=== PATIENT | male | born 1955 | race Caucasian/White ===

== ENCOUNTER 2019-11-16 13:36 | Inpatient (IN) | payer OTHER ==
--- NOTE | 2019-11-16 13:27 | BHS.RME ---
Substance Use & Tx History - Substance Use History Alcohol Substance amount: 1/2 pint vodka Frequency of use: Daily Substance route: Oral Date of Last Use: 11/13/19 (started age 10) Heroin Substance amount: 1 bundle Frequency of use: Daily Substance route: Inhalation (ex: sniffing or snorting) Date of Last Use: 11/16/19 (started age 12) Nicotine Substance amount: 1 pack Frequency of use: Daily Substance route: Smoking Date of Last Use: 11/16/19 Physical/Psych/Mental Status - Behavior General Behavior: Increased activity (restlessness, agitation) Eye Contact: Normal - Cooperativeness Cooperativeness: Cooperative - Thinking Thought Processes: Tight, Logical, Goal Directed - Physical Health Problems Is patient presently having any pain?: No Does patient presently have any injuries (include location): No Does patient currently have a fever: No Is patient : No COWS - Scale Resting Pulse: 0= [place] 80 or Below Sweatin= Chills/Flushing Restless Observation: 1= Difficult to Sit Still Pupil Size: 1= Pupils >than Normal Bone or Joint Aches: 1= Mild Discomfort Runny Nose/ Eye Tearin= Nasal Congestion GI Upset > 30mins: 1= Stomach Cramp Tremor Observation: 1= Tremor [place], Not Seen Yawning Observation: 1= 1-2x During Session Anxiety or Irritability: 1=Feels Anxious/Irritable Goose Flesh Skin: 3=Piloerection COWS Score: 12
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
[2019-11-16] MEDS ORDERED: METHOCARBAMOL 500 MG TABLET PO PRN (14:52)
[2019-11-16] MEDS ORDERED: IBUPROFEN 400 MG TABLET (FP) PO PRN (14:52)
[2019-11-16] MEDS ORDERED: BISMUTH SUBSALICYLATE 262 MG/15 ML BTL PO PRN (14:52)
[2019-11-16] MEDS ORDERED: cloNIDine HCL 0.1 MG TABLET PO PRN (14:52)
[2019-11-16] MEDS ORDERED: NICOTINE POLACRILEX 2 MG GUM BUC PRN (14:52)
[2019-11-16] MEDS ORDERED: MAGNESIUM CITRATE 300 ML BOTTLE PO PRN (14:52)
[2019-11-16] MEDS ORDERED: ACETAMINOPHEN 325 MG TABLET (FP) PO PRN ×2 (14:52)
[2019-11-16] MEDS ORDERED: ONDANSETRON *ODT* 4 MG TABLET SL PRN (14:52)
[2019-11-16] MEDS ORDERED: METHADONE HCL 10 MG TABLET (FOR DETOX USE ONLY) PO ONE (14:52)
[2019-11-16] MEDS ORDERED: MAG HYDROX/AL HYDROX/SIMETH 30 ML UNIT-DOSE CUP PO PRN (14:52)
[2019-11-16] MEDS ORDERED: MAGNESIUM HYDROX 2400MG/30ML ORAL SUSPENSION 30 ML CUP PO PRN (14:52)
[2019-11-16] MEDS ORDERED: MENTHOL/PHENOL 1 EACH UD MM PRN (14:52)
[2019-11-16 15:23] VITALS: BMI 31.3
[2019-11-16] MEDS: NICOTINE 21 MG/24 HOURS TOPICAL PATCH TD SCH (16:10)
--- NOTE | 2019-11-16 16:35 | PN ---
Teaching Attending Note Name of Resident: Corin Molina ATTENDING PHYSICIAN STATEMENT I saw and evaluated the patient. I reviewed the resident's note and discussed the case with the resident. I agree with the resident's findings and plan as documented. SUBJECTIVE: OBJECTIVE: ASSESSMENT AND PLAN: 1. Opiate use disorder, withdrawal 2. Alcohol use disorder, has not had a drink in 3 days, low CIWA Plan 1. Methadone detox 2. Monitor for withdrawal
--- NOTE | 2019-11-16 17:11 | EKG ---
Test Reason : Blood Pressure : / mmHG Vent. Rate : 053 BPM Atrial Rate : 053 BPM P-R Int : 148 ms QRS Dur : 078 ms QT Int : 424 ms P-R-T Axes : 055 036 067 degrees QTc Int : 397 ms SINUS BRADYCARDIA OTHERWISE NORMAL ECG NO PREVIOUS ECGS AVAILABLE Confirmed by ANGEL POWELL MD ([id number]) on 11/16/2019 5:10:43 PM Referred By: Confirmed By:ANGEL POWELL MD
[2019-11-16] MEDS ORDERED: hydrOXYzine PAMOATE 25 MG CAPSULE (FP) PO SCH (18:00)
[2019-11-16] MEDS: CARVEDILOL 25 MG TABLET (FP) PO SCH (22:09)
[2019-11-16] MEDS: THIAMINE HCL 100 MG TABLET (FP) PO SCH (22:09)
[2019-11-16] MEDS: MELATONIN 5 MG TABLETS PO SCH (22:10)
[2019-11-17] MEDS: hydrOXYzine PAMOATE 25 MG CAPSULE (FP) PO PRN ×3 (03:53→17:39)
[2019-11-17] MEDS ORDERED: METHADONE HCL 5 MG TABLET (FOR DETOX USE ONLY) ONE (09:07)
[2019-11-17] MEDS ORDERED: METHADONE HCL 10 MG TABLET (FOR DETOX USE ONLY) ONE (09:08)
[2019-11-17] MEDS: CARVEDILOL 25 MG TABLET (FP) PO SCH ×2 (09:10→23:28)
[2019-11-17] MEDS: ASPIRIN 81 MG CHEWABLE TABLETS PO SCH (09:10)
[2019-11-17] MEDS: LOSARTAN POTASSIUM 50 MG TABLET PO SCH (09:10)
[2019-11-17] MEDS: NICOTINE 21 MG/24 HOURS TOPICAL PATCH TD SCH (09:10)
[2019-11-17] MEDS: PRENATAL VITAMINS W/ FOLIC ACID TABLET (FP) PO SCH (09:11)
--- NOTE | 2019-11-17 09:21 | CONSULT ---
[facility] Psychiatric Consult - Data Date of interview: 11/17/19 Admission source: [facility] Identifying data: Mr Birmingham is a 64 years old Black male, father of 2 living children, unemployed receiving SSI, living with family seeking detox treatment for alcohol and opioid Substance Abuse History: Reports history of alcohol and heroin use. Refer to addiction counselor's summary for further information Medical History: Significant for COPD, hypertension, dyslipidemia, coronary artery disease with history of stent placement in 2018 Psychiatric History: This is patient's first admission to this facility. He denies history of previous psychiatric treatment or suicidal attempt. However, reports that for the past year, he has been presribed Seroquel 100 mg/hs for insomnia by his primary care physician. At present, reports feeling depressed and sleeping poorly Physical/Sexual Abuse/Trauma History: Denies history of abuse as a child or DV relationship as an adult Mental Status Exam - Mental Status Exam Alert and Oriented to: Time, Place, Person Cognitive Function: Fair Patient Appearance: Well Groomed Mood: Depressed Affect: Appropriate Patient Behavior: Cooperative Voice Loudness: Normal Thought Process: Intact, Goal Oriented Thought Disorder: Not Present Hallucinations: Denies Suicidal Ideation: Denies Homicidal Ideation: Denies Insight/Judgement: Poor Sleep: Poorly Appetite: Poor Muscle strength/Tone: Normal Gait/Station: Normal Psychiatric Findings - Problem List ([place] 1, 2,3) (1) Substance induced mood disorder Current Visit: Yes Status: Acute (2) Substance-induced sleep disorder Current Visit: Yes Status: Acute (3) Uncomplicated opioid dependence Current Visit: Yes Status: Acute (4) Alcohol dependence Current Visit: Yes Status: Acute (5) Nicotine dependence Current Visit: Yes Status: Chronic (6) HTN (hypertension) Current Visit: Yes Status: Chronic (7) HLD (hyperlipidemia) Current Visit: Yes Status: Chronic (8) CAD (coronary artery disease) Current Visit: Yes Status: Chronic (9) Stented coronary artery Current Visit: Yes Status: Chronic - Initial Treatment Plan Initial Treatment Plan: 1) Continue Seroquel 100 mg po HS. Benefits vs Risks(Diabetes mellitus, Tardive dyskinesia etc) discussed with patient and he insists on being ordered medication. 2) Continue inpatient detoxification
--- NOTE | 2019-11-17 09:49 | PN ---
S COWS - Scale Resting Pulse: 0= [place] 80 or Below Sweatin= No chills or Flushing Restless Observation: 0= Sits Still Pupil Size: 1= Pupils >than Normal Bone or Joint Aches: 2= Severe Diffuse Aches Runny Nose/ Eye Tearin= Runny Nose/Eyes GI Upset > 30mins: 2= Nausea/Diarrhea Tremor Observation of Outstretched Hands: 2= Slight Tremor Visible Yawning Observation: 1= 1-2x During Session Anxiety or Irritability: 2=Irritable/Anxious Goose Flesh Skin: 0=Smooth Skin COWS Score: 12 S Progress Note (SOAP) Subjective: alert,irritable,anxious,interrupted sleep,pain in the body,back,nausea,diarrhea Objective: 11/18/19 07:23 Vital Signs Temperature 97.3 F L 11/18/19 05:55 Pulse Rate 71 11/18/19 05:55 Respiratory Rate 18 11/18/19 05:55 Blood Pressure 117/73 11/18/19 05:55 O2 Sat by Pulse Oximetry (%) 98 11/18/19 05:55 11/18/19 07:24 Laboratory Last Values WBC 5.2 K/mm3 (4.0-10.0) 11/16/19 07:00 RBC 5.27 M/mm3 (4.00-5.60) 11/16/19 07:00 Hgb 14.6 GM/dL (11.7-16.9) 11/16/19 07:00 Hct 44.0 % (35.4-49) 11/16/19 07:00 MCV 83.6 fl (80-96) 11/16/19 07:00 MCH 27.8 pg (25.7-33.7) 11/16/19 07:00 MCHC 33.2 g/dl (32.0-35.9) 11/16/19 07:00 RDW 13.0 % (11.9-15.9) 11/16/19 07:00 Plt Count 181 K/MM3 (134-434) 11/16/19 07:00 MPV 8.2 fl (7.5-11.1) 11/16/19 07:00 Sodium 141 mmol/L (136-145) 11/16/19 07:00 Potassium 4.3 mmol/L (3.5-5.1) 11/16/19 07:00 Chloride 108 mmol/L (98-107) H 11/16/19 07:00 Carbon Dioxide 27 mmol/L (21-32) 11/16/19 07:00 Anion Gap 6 MMOL/L (8-16) L 11/16/19 07:00 BUN 14.7 mg/dL (7-18) 11/16/19 07:00 Creatinine 0.8 mg/dL (0.55-1.3) 11/16/19 07:00 Est GFR (CKD-EPI)AfAm 109.42 11/16/19 07:00 Est GFR (CKD-EPI)NonAf 94.41 11/16/19 07:00 Random Glucose 104 mg/dL (74-106) 11/16/19 07:00 Calcium 9.1 mg/dL (8.5-10.1) 11/16/19 07:00 Total Bilirubin 0.8 mg/dL (0.2-1) 11/16/19 07:00 AST 15 U/L (15-37) 11/16/19 07:00 ALT 27 U/L (13-61) 11/16/19 07:00 Alkaline Phosphatase 89 U/L (45-117) 11/16/19 07:00 Total Protein 7.1 g/dl (6.4-8.2) 11/16/19 07:00 Albumin 3.5 g/dl (3.4-5.0) 11/16/19 07:00 Syphilis Serology Non-reactive (NONREACTIVE) 11/16/19 07:00 Assessment: 11/18/19 07:24 withdrawal symptom Plan: continue detox methadone regimen,valium 10 mgs po q 4hrs prn for 72 hrs for severe withdrawal,encourage oral fluid
[2019-11-17] MEDS ORDERED: METHADONE (DETOX) 20 MG, METHADONE (DETOX) 5 MG PO ONE (10:00)
[2019-11-17 10:18] LABS: HEMOGLOBIN 14.6 GM/dL (11.7-16.9); MCH 27.8 pg (25.7-33.7); MCHC 33.2 g/dl (32.0-35.9); MEAN CELL VOLUME 83.6 fl (80-96); MEAN PLT VOLUME 8.2 fl (7.5-11.1); PLATELET COUNT 181 K/MM3 (134-434); RBC 5.27 M/mm3 (4.00-5.60); WHITE BLOOD COUNT 5.2 K/mm3 (4.0-10.0)
[2019-11-17 10:33] LABS: ALBUMIN 3.5 g/dl (3.4-5.0); BLOOD UREA NITROGEN 14.7 mg/dL (7-18); CALCIUM 9.1 mg/dL (8.5-10.1); CREATININE 0.8 mg/dL (0.55-1.3); POTASSIUM 4.3 mmol/L (3.5-5.1)
[2019-11-17 10:34] LABS: BILIRUBIN,TOTAL 0.8 mg/dL (0.2-1); TOT PROT 7.1 g/dl (6.4-8.2)
[2019-11-17] MEDS: diazePAM 5 MG TABLET PO PRN ×3 (12:22→22:24)
[2019-11-17] MEDS: QUEtiapine FUMARATE 100 MG TABLET (FP) PO SCH (22:24)
[2019-11-17] MEDS: THIAMINE HCL 100 MG TABLET (FP) PO SCH (22:24)
[2019-11-17] MEDS: MELATONIN 5 MG TABLETS PO SCH (22:25)
[2019-11-18] MEDS: diazePAM 5 MG TABLET PO PRN ×2 (05:21→22:07)
[2019-11-18] MEDS ORDERED: METHADONE HCL 10 MG TABLET (FOR DETOX USE ONLY) PO ONE (10:00)
[2019-11-18] MEDS: PRENATAL VITAMINS W/ FOLIC ACID TABLET (FP) PO SCH (10:46)
[2019-11-18] MEDS: ASPIRIN 81 MG CHEWABLE TABLETS PO SCH (10:46)
[2019-11-18] MEDS: LOSARTAN POTASSIUM 50 MG TABLET PO SCH (10:46)
[2019-11-18] MEDS: CARVEDILOL 25 MG TABLET (FP) PO SCH ×2 (10:46→22:07)
[2019-11-18] MEDS: NICOTINE 21 MG/24 HOURS TOPICAL PATCH TD SCH (10:47)
--- NOTE | 2019-11-18 11:23 | PN ---
BHS COWS - Scale Resting Pulse: 0= [place] 80 or Below Sweatin= Chills/Flushing Restless Observation: 1= Difficult to Sit Still Pupil Size: 0= Normal to Room Light Bone or Joint Aches: 1= Mild Discomfort Runny Nose/ Eye Tearin= Nasal Congestion GI Upset > 30mins: 0= None Tremor Observation of Outstretched Hands: 1= Tremor [place], Not Seen Yawning Observation: 1= 1-2x During Session Anxiety or Irritability: 2=Irritable/Anxious Goose Flesh Skin: 0=Smooth Skin COWS Score: 8 BHS Progress Note (SOAP) Subjective: sweats body aches restless interrupted sleep agitation Objective: 11/18/19 11:19 Vital Signs Temperature 97.3 F L 11/18/19 09:29 Pulse Rate 72 11/18/19 09:29 Respiratory Rate 18 11/18/19 09:29 Blood Pressure 125/82 11/18/19 09:29 O2 Sat by Pulse Oximetry (%) 98 11/18/19 05:55 Laboratory Tests 11/16/19 11/16/19 11/16/19 07:00 07:00 07:00 WBC 5.2 RBC 5.27 Hgb 14.6 Hct 44.0 MCV 83.6 MCH 27.8 MCHC 33.2 RDW 13.0 Plt Count 181 MPV 8.2 Sodium 141 Potassium 4.3 Chloride 108 H Carbon Dioxide 27 Anion Gap 6 L BUN 14.7 Creatinine 0.8 Est GFR (CKD-EPI)AfAm 109.42 Est GFR (CKD-EPI)NonAf 94.41 Random Glucose 104 Calcium 9.1 Total Bilirubin 0.8 AST 15 ALT 27 Alkaline Phosphatase 89 Total Protein 7.1 Albumin 3.5 Syphilis Serology Non-reactive COVID-19 (STAN) 11/16/19 15:24 WBC RBC Hgb Hct MCV MCH MCHC RDW Plt Count MPV Sodium Potassium Chloride Carbon Dioxide Anion Gap BUN Creatinine Est GFR (CKD-EPI)AfAm Est GFR (CKD-EPI)NonAf Random Glucose Calcium Total Bilirubin AST ALT Alkaline Phosphatase Total Protein Albumin Syphilis Serology COVID-19 (TSAN) Not detected labs noted aaox3 ambulating no acute distress Assessment: 11/18/19 11:22 withdrawals Plan: continue detox valium prn
[2019-11-18] MEDS: QUEtiapine FUMARATE 100 MG TABLET (FP) PO SCH (22:07)
[2019-11-18] MEDS: THIAMINE HCL 100 MG TABLET (FP) PO SCH (22:07)
[2019-11-18] MEDS: MELATONIN 5 MG TABLETS PO SCH (23:43)
[2019-11-19] MEDS: diazePAM 5 MG TABLET PO PRN ×2 (06:53→22:12)
[2019-11-19] MEDS ORDERED: METHADONE HCL 10 MG TABLET (FOR DETOX USE ONLY) ONE (09:48)
[2019-11-19] MEDS ORDERED: METHADONE HCL 5 MG TABLET (FOR DETOX USE ONLY) ONE (09:48)
[2019-11-19] MEDS ORDERED: METHADONE (DETOX) 10 MG, METHADONE (DETOX) 5 MG PO ONE (10:00)
[2019-11-19] MEDS: NICOTINE 21 MG/24 HOURS TOPICAL PATCH TD SCH (10:32)
[2019-11-19] MEDS: LOSARTAN POTASSIUM 50 MG TABLET PO SCH (10:32)
[2019-11-19] MEDS: ASPIRIN 81 MG CHEWABLE TABLETS PO SCH (10:32)
[2019-11-19] MEDS: PRENATAL VITAMINS W/ FOLIC ACID TABLET (FP) PO SCH (10:32)
[2019-11-19] MEDS: CARVEDILOL 25 MG TABLET (FP) PO SCH ×2 (10:32→22:13)
--- NOTE | 2019-11-19 11:00 | PN ---
[facility] COWS - Scale Resting Pulse: 0= [place] 80 or Below Sweatin= Chills/Flushing Restless Observation: 0= Sits Still Pupil Size: 0= Normal to Room Light Bone or Joint Aches: 1= Mild Discomfort Runny Nose/ Eye Tearin= None GI Upset > 30mins: 0= None Tremor Observation of Outstretched Hands: 1= Tremor [place], Not Seen Yawning Observation: 1= 1-2x During Session Anxiety or Irritability: 1=Feels Anxious/Irritable Goose Flesh Skin: 0=Smooth Skin COWS Score: 5 BHS Progress Note (SOAP) Subjective: sweats irritable agitation body aches Objective: 11/19/19 10:59 Vital Signs Temperature 98.0 F 11/19/19 08:56 Pulse Rate 65 11/19/19 08:56 Respiratory Rate 18 11/19/19 08:56 Blood Pressure 110/63 11/19/19 08:56 O2 Sat by Pulse Oximetry (%) 95 11/19/19 08:56 Laboratory Tests 11/16/19 11/16/19 11/16/19 07:00 07:00 07:00 WBC 5.2 RBC 5.27 Hgb 14.6 Hct 44.0 MCV 83.6 MCH 27.8 MCHC 33.2 RDW 13.0 Plt Count 181 MPV 8.2 Sodium 141 Potassium 4.3 Chloride 108 H Carbon Dioxide 27 Anion Gap 6 L BUN 14.7 Creatinine 0.8 Est GFR (CKD-EPI)AfAm 109.42 Est GFR (CKD-EPI)NonAf 94.41 Random Glucose 104 Calcium 9.1 Total Bilirubin 0.8 AST 15 ALT 27 Alkaline Phosphatase 89 Total Protein 7.1 Albumin 3.5 Syphilis Serology Non-reactive COVID-19 (STAN) 11/16/19 15:24 WBC RBC Hgb Hct MCV MCH MCHC RDW Plt Count MPV Sodium Potassium Chloride Carbon Dioxide Anion Gap BUN Creatinine Est GFR (CKD-EPI)AfAm Est GFR (CKD-EPI)NonAf Random Glucose Calcium Total Bilirubin AST ALT Alkaline Phosphatase Total Protein Albumin Syphilis Serology COVID-19 (STAN) Not detected labs noted aaox3 ambulating no acute distress Assessment: 11/19/19 11:00 withdrawals Plan: continue detox
[2019-11-19] MEDS: THIAMINE HCL 100 MG TABLET (FP) PO SCH (22:12)
[2019-11-19] MEDS: QUEtiapine FUMARATE 100 MG TABLET (FP) PO SCH (22:12)
[2019-11-19] MEDS: MELATONIN 5 MG TABLETS PO SCH (22:13)
[2019-11-20] MEDS: diazePAM 5 MG TABLET PO PRN (05:57)
[2019-11-20] MEDS ORDERED: METHADONE HCL 10 MG TABLET (FOR DETOX USE ONLY) PO ONE (10:00)
[2019-11-20 10:04] VITALS: BP 144/72; PULSE 73; TEMP 98.2
[2019-11-20] MEDS: PRENATAL VITAMINS W/ FOLIC ACID TABLET (FP) PO SCH (10:51)
[2019-11-20] MEDS: ASPIRIN 81 MG CHEWABLE TABLETS PO SCH (10:51)
[2019-11-20] MEDS: LOSARTAN POTASSIUM 50 MG TABLET PO SCH (10:51)
[2019-11-20] MEDS: NICOTINE 21 MG/24 HOURS TOPICAL PATCH TD SCH (10:51)
[2019-11-20] MEDS: CARVEDILOL 25 MG TABLET (FP) PO SCH (10:51)
--- NOTE | 2019-11-20 11:07 | PN ---
[facility]HS COWS - Scale Resting Pulse: 0= [place] 80 or Below Sweatin= No chills or Flushing Restless Observation: 0= Sits Still Pupil Size: 0= Normal to Room Light Bone or Joint Aches: 1= Mild Discomfort Runny Nose/ Eye Tearin= None GI Upset > 30mins: 0= None Tremor Observation of Outstretched Hands: 0= None Yawning Observation: 0= None Anxiety or Irritability: 1=Feels Anxious/Irritable Goose Flesh Skin: 0=Smooth Skin COWS Score: 2 BHS Progress Note (SOAP) Subjective: little anxiety I am ready for rehab and move on with my life Objective: 11/20/19 11:06 Vital Signs Temperature 98.2 F 11/20/19 09:00 Pulse Rate 73 11/20/19 09:00 Respiratory Rate 18 11/20/19 09:00 Blood Pressure 144/72 11/20/19 09:00 O2 Sat by Pulse Oximetry (%) 97 11/20/19 09:00 aaox3 ambulating no acute distress Assessment: 11/20/19 11:07 mild withdrawals Plan: continue detox d/c today if bed is available otherwise d/c in am
--- NOTE | 2019-11-20 14:25 | DS ---
[facility] Detox Discharge Summary Admission Date: 11/16/19 Discharge Date: 11/20/19 - History Present History: Alcohol Dependence, Opioid Dependence - Physical Exam Results Vital Signs: Vital Signs Temperature 98.2 F 11/20/19 09:00 Pulse Rate 73 11/20/19 09:00 Respiratory Rate 18 11/20/19 09:00 Blood Pressure 144/72 11/20/19 09:00 O2 Sat by Pulse Oximetry (%) 97 11/20/19 09:00 Pertinent Admission Physical Exam Findings: Vital Signs Temperature 98.2 F 11/20/19 09:00 Pulse Rate 73 11/20/19 09:00 Respiratory Rate 18 11/20/19 09:00 Blood Pressure 144/72 11/20/19 09:00 O2 Sat by Pulse Oximetry (%) 97 11/20/19 09:00 Laboratory Tests 11/16/19 11/16/19 11/16/19 07:00 07:00 07:00 WBC 5.2 RBC 5.27 Hgb 14.6 Hct 44.0 MCV 83.6 MCH 27.8 MCHC 33.2 RDW 13.0 Plt Count 181 MPV 8.2 Sodium 141 Potassium 4.3 Chloride 108 H Carbon Dioxide 27 Anion Gap 6 L BUN 14.7 Creatinine 0.8 Est GFR (CKD-EPI)AfAm 109.42 Est GFR (CKD-EPI)NonAf 94.41 Random Glucose 104 Calcium 9.1 Total Bilirubin 0.8 AST 15 ALT 27 Alkaline Phosphatase 89 Total Protein 7.1 Albumin 3.5 Syphilis Serology Non-reactive COVID-19 (STAN) 11/16/19 15:24 WBC RBC Hgb Hct MCV MCH MCHC RDW Plt Count MPV Sodium Potassium Chloride Carbon Dioxide Anion Gap BUN Creatinine Est GFR (CKD-EPI)AfAm Est GFR (CKD-EPI)NonAf Random Glucose Calcium Total Bilirubin AST ALT Alkaline Phosphatase Total Protein Albumin Syphilis Serology COVID-19 (STAN) Not detected labs noted aaox3 ambulating no acute distress lungs CTA - Treatment Hospital Course: Detox Protocol Followed, Detoxed Safely, Responded well, Discharged Condition Good, Rehab Referral Accepted - Medication Discharge Medications: Ambulatory Orders Aspirin [ASA -] 81 mg PO DAILY 11/16/19 Carvedilol [Coreg -] 25 mg PO BID 11/16/19 Losartan Potassium [Cozaar -] 50 mg PO DAILY 10/05/20 Prasugrel HCl [Effient] 10 mg PO DAILY 11/16/19 Quetiapine Fumarate [Seroquel -] 100 mg PO HS 11/16/19 Rosuvastatin [Crestor -] 20 mg PO HS 11/16/19 - Diagnosis (1) Alcohol dependence Status: Chronic Qualifiers: Substance use status: uncomplicated Qualified Code(s): F10.20 - Alcohol dependence, uncomplicated (2) Substance induced mood disorder Status: Acute (3) Substance-induced sleep disorder Status: Acute (4) Uncomplicated opioid dependence Status: Acute (5) CAD (coronary artery disease) Status: Chronic (6) HLD (hyperlipidemia) Status: Chronic (7) HTN (hypertension) Status: Chronic (8) Nicotine dependence Status: Chronic Qualifiers: Nicotine product type: cigarettes Substance use status: uncomplicated Qualified Code(s): F17.210 - Nicotine dependence, cigarettes, uncomplicated (9) Stented coronary artery Status: Chronic - AMA Did Patient Leave Against Medical Advice: No
[2019-11-21] MEDS ORDERED: METHADONE HCL 5 MG TABLET (FOR DETOX USE ONLY) PO ONE (06:00)
== END 2019-11-20 12:42 | disposition other institution (70) | DRG 773 ==
LOC: YASAS 13:36 → Y6N 15:18
PROVIDERS: ADMIT Allergy & Immunology; ATTEND Allergy & Immunology
PROC: HZ2ZZZZ Detoxification Services for Substance Abuse Treatment (ICD-10-PCS; principal; 2019-11-16)
DX: F10.230 Alcohol dependence with withdrawal, uncomplicated (principal); F11.23 Opioid dependence with withdrawal; F17.210 Nicotine dependence, cigarettes, uncomplicated; F19.282 Other psychoactive substance dependence with psychoactive substance-induced sleep disorder; F19.24 Other psychoactive substance dependence with psychoactive substance-induced mood disorder; E78.5 Hyperlipidemia, unspecified; J44.9 Chronic obstructive pulmonary disease, unspecified; I25.10 Atherosclerotic heart disease of native coronary artery without angina pectoris; I10 Essential (primary) hypertension; Z95.5 Presence of coronary angioplasty implant and graft
CPT/HCPCS: 36415; 80053; 85027; 86780; 93005; 93010; C9803; U0003